=== PATIENT | male | born 1975 | race Caucasian/White ===

== ENCOUNTER → 2024-03-11 | Outpatient (CLI) | payer BC | LOC: M RAD 10:34 | PROVIDERS: ATTEND Nurse Practitioner Family | DX: M54.50 Low back pain, unspecified (principal) ==

== ENCOUNTER 2024-05-05 11:40 | Day surgery (SDC) | payer BC ==
[~2024-05-05] VITALS: Ht 188 cm; Wt 101.4 kg
[~2024-05-05 11:40] MED LIST: LIDOCAINE 2% 100MG/5ML SDV (FOR ANES.) As Ordered ONE; propofoL 200 MG/20 ML VIAL As Ordered ONE
[2024-05-05 12:21] VITALS: TEMP 97.4
[2024-05-05 12:35] VITALS: BP 121/80; O2SAT 97
== END 2024-05-05 12:42 | disposition home or self-care (01) ==
LOC: M OPP 11:40
PROVIDERS: ATTEND Surgery
DX: Z12.11 Encounter for screening for malignant neoplasm of colon (principal); K63.5 Polyp of colon